=== PATIENT | female | born 1975 | race Caucasian/White ===

== ENCOUNTER 2022-04-23 13:45 | Outpatient (RCR) | payer OTHER, SELFPAY ==
--- NOTE | 2022-04-09 19:15 | PT.OIE ---
Current Diagnoses Other chronic pain (04/09/22) Low back pain, unspecified (04/09/22) Stress incontinence (female) (male) (04/09/22) Visit Care Team Role Provider Type Lindsey Key DO Attending Provider Non-Staff Family Provider Primary Care Provider Referring Provider Specialty: Internal Medicine Address: [address] [place] [address], [id number] Email: Physical Therapy Initial Evaluation PT-OP-A Visit Information Start: 04/06/22 16:48 Freq: Status: Active Protocol: Document 04/09/22 09:49 LRN (Rec: 04/09/22 12:39 LRN [id number]) Out-Patient Physical Therapy Visit Information Visit Information Visit Type Initial Evaluation Visit Start Time 09:49 Visit Stop Time 10:29 Total Visit Minutes 40 Visit Number 1 Evaluation Information Evaluation Date 04/09/22 Precautions Precautions PMH: Jaw surgery 1999. Currently taking Alleve every other day since onset (2 months ago). PT-OP-B Current Condition Start: 04/06/22 16:48 Freq: Status: Active Protocol: Document 04/09/22 09:49 LRN (Rec: 04/09/22 12:39 LRN [id number]) Current Condition History of Current Condition Onset Date LBP-2 months ago, Stress urinary leak - 3 yrs ago Current Complaints Pain at sacral level intermittently daily, Urine leakage History of Current Condition Pt states her back is the primary problem and her primary area of interest for therapy. Her pain began for the first time 2 months ago after leaning forward to cough , causing her back to freeze up. Her pain lasted 3 days followed by self treatment of Mega's patches and Alleve, that she has contined taking every other day. Currently her low back intermittently freezes up. Her Urinary leakage onset was noted as staining in her underpants, but she reports not feeling urinary leakage. She is able to delay urination 31-60 minutes and she notes pelvic heaviness/pressure all day. Pt has not had children. She leaks with coughting, sneezing, or laughing. Leakage with a stong urge. 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 She has exercised in a gym but has now stopped due to no longer using a mask at the gym . States she primarily did cardio exercise. 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 X-ray report unavailable to verify. Future Testing and Treatments Planned None Treatment Goals Patient/Caregiver Goals Pt goal is to improve control of her lower core because she feels she has lost control of her lower abs due to unable to ex during COVID lockdown. Wants to do home ex's and do them the right way to improve core strength/stability. 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 Did active tours when on campus before [facility]. Baseline Function- Recreation/Hobbies Carried backpack for overnight camping/hiking with girlfriends (30# or less). 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 Functional Limitations- Recreation/ Not able to backpack for Hobbies overnight camping/hiking with girlfriends (30# or less). Personal Factors Other Personal Factors That May Effect Endometriosis surgery 2006. Therapy/Recovery Recent moved to local [facility] in July [place] from [place], [place] , requiring her to 1x/month to drive to [place] for work. PT-OP-C Subjective Start: 04/06/22 16:48 Freq: Status: Active Protocol: Document 04/09/22 09:49 LRN (Rec: 04/09/22 12:39 LRN [id number]) Patient Questionnaires Oswestry Low Back Index Oswestry Score 14 Oswestry Impairment 1 to 19% Impaired (Score 1-19) Pelvic Pain and Urgency/Frequency Patient Symptom Scale Pelvic Pain Score 4 OP-PT Pain Assessment Pain Assessment Grid Paper Pain Assessment Grid Completed Yes Location Low Back Pain Location Details Sacral region of low back Intensity 4 Scale Used Numeric (0 - 10) Description Aching,Dull Description- Other Sometimes a surprise punch and sometimes down post thigh either sie. Frequency Intermittent Pain Duration Pain down thighs is quick, Long duration dull ache. PT-OP-H Neuro Start: 04/06/22 16:48 Freq: Status: Active Protocol: Document 04/09/22 09:49 LRN (Rec: 04/09/22 19:12 LRN [id number]) Sensation Evaluation Gross Sensation Gross Sensation WNL PT-OP-J Posture/Palpation/Skin Start: 04/06/22 16:48 Freq: Status: Active Protocol: Document 04/09/22 09:49 LRN (Rec: 04/09/22 12:39 LRN [id number]) Posture Evaluation Position Standing Head/C-Spine Posture Forward Head L-Spine Posture Shifted Left Shoulder Posture (L) Elevated Scapula Posture (L) Elevated,(R) Depressed Pelvis Posture Anteriorly Tilted,(R) Iliac Crest Superior Knee Posture (L) Genu Valgus,(R) Genu Valgus Foot Arch (L) No Arch,(R) No Arch Comments Posture Comments Anterior tillt of sacrum. Pt wears superfeet. R PSIS is high and deep. Palpation Assessment Location T12 Palpation Location Spinous process T12 Palpation Findings Tenderness Palpation Details Posterior and tender with PA glide causing radiating pain along L rib12 to front Lumbar Palpation Location L5-S1, Palpation Details L rotated. Sacrum Palpation Location Sacrum Palpation Details R side deep; sacrum L rotated PT-OP-K Range of Motion Start: 04/06/22 16:48 Freq: Status: Active Protocol: Document 04/09/22 09:49 LRN (Rec: 04/09/22 12:39 LRN [id number]) Lumbar Spine Range of Motion Lumbar Spine Active Degrees Testing Position Standing Flexion 80 Extension 12 Rotation Left 45 Rotation Right 40 Lateral Flexion Left 9 Lateral Flexion Right 12 Comments Flex 80 deg's with 42 deg's hip flexion Ext 12 deg's wtih 5 deg's of hip extension. Hip Goniometric Range of Motion Hip Right Passive Hip ROM WFL Yes Straight Leg Raise 77 Internal Rotation 65 External Rotation 50 Comments Tight HS w/SLR Left Passive Hip ROM WFL Yes Straight Leg Raise 83 Internal Rotation 55 External Rotation 50 Comments Tight HS w/SLR PT-OP-M Strength Start: 04/06/22 16:48 Freq: Status: Active Protocol: Document 04/09/22 09:49 LRN (Rec: 04/09/22 12:39 LRN [id number]) Trunk Strength Trunk Manual Muscle Testing Flexion 5 Normal Rotation Left 5 Normal Rotation Right 5 Normal Lateral Flexion Left 2+ Poor+ Lateral Flexion Right 2+ Poor+ Core Stabilization Good core stab except lateral trunk SB Comments Mildly lacks core stab with MMT of hip flexin Hip Strength Hip Manual Muscle Testing Right Flexion (L2) 5 Normal Abduction 3 Fair Adduction 5 Normal External Rotation 4 Good Internal Rotation 3 Fair Left Flexion (L2) 5 Normal Abduction 5 Normal Adduction 3 Fair External Rotation 3 Fair Internal Rotation 3 Fair Knee Strength Knee Manual Muscle Testing Right Flexion (S2) 5 Normal Extension (L3) 5 Normal Left Flexion (S2) 3+ Fair+ Extension (L3) 5 Normal Ankle/Foot Strength Ankle and Foot Manual Muscle Testing Right Comments Generally 5/5 Left Comments Generally 5/5 PT-OP-Q Treatments Start: 04/06/22 16:48 Freq: Status: Active Protocol: Document 04/09/22 09:49 LRN (Rec: 04/09/22 12:39 LRN [id number]) Self-Care/Home Management Treatment Education Other Education Pt educated in use of Bladder Diary and I/S in tracking for 1 week. Discussed use of 2 different diaries for tracking of bladder. Discussed results of evaluation, specifics of plan of care (POC), and goals, pt agreeable to POC and goals. PT-OP-T Assessment and Plan Start: 04/06/22 16:48 Freq: Status: Active Protocol: Document 04/09/22 09:49 LRN (Rec: 04/09/22 12:39 LRN [id number]) Physical Therapy Assessment Rehab Potential Rehabilitation Potential Good Evaluation Complexity Number of Personal Factors/Comorbidities 1-2 Number of Body Systems Impaired 4 or More Clinical Presentation at Evaluation Evolving Impairments Impairments Activity Tolerance,Pain, Posture,ROM,Strength,Transfers Other Impairments Urinary leakage. Goals Three Impairment LBP rated 0-4/10 Impairment LUCY is 7/50 (1-19% impaired, score 1-19) Short Term Goal (STG) Education in proper body mechanics and sitting posture (car rides) STG Duration 04/17/22 Shredding Machine Operator Goal (LTG) Improve control/strength of her lower core & decrease stiffness in low back after long car rides (to [place] 1- 2x/week). Two Impairment Urinary Incontinence with poor awareness Short Term Goal (STG) Pt will be educated in vulvar/ perineal care. STG Duration 04/17/22 Shredding Machine Operator Goal (LTG) Pt will be educated in home ex 's to improve PF muscle tone to decrease onset of urinary staining on her underpants. LTG Duration 07/08/22 One Impairment Lacks appropriate self care HEP Fpc Goal (LTG) Pt will be independent in a self care HEP to manage her LBP and improve PF strength. LTG Duration 07/08/22 Assessment Summary Assessment Pt is a 46 year old female who presents with complaints of LBP that resulted from forced cough in a forward bent position. Asymmetry of hip mobility: PSLR is 77 deg's R, 83 deg's left due to hamstring tightness, decreased hip ER and IR is greater on the R. She has tenderness and decreased PA mobility of T12 and referred pain along the L lower rib with PA mobilization . Her spinous process appears more posteriorly oriented. The pts sacrum is in R rotation and appear forward flexed in standing. The pt will benefit from skilled physical therapy to improve lumbar/sacral mobility to minimize freezing up of her low back and placing the pt on a self care HEP to manage onset of LBP. The pt will also benefit from skilled physical therapy to normalized tone of her PF to improve her ability to maintain urinary continence on a daily basis. She will also benefit from pt education in proper vulvar and perineal care. The pt would benefit from therapy 2x/week, but she is choosing to continue 1x/week, but may decide later to increase to 2x /week; therefore POC at this time will be for 2x/week. Physical Therapy Plan Frequency and Duration Frequency of Treatment 1x/Week Plan of Care Start Date 04/09/22 Plan of Care End Date 07/08/22 Therapeutic Interventions Therapeutic Interventions Aquatic Therapy,Gait Training, Home Exercise Program,Joint Mobilizations,Manual Therapy, Neuromuscular Re-education, Patient/Caregiver Education, Self-Care/Home Management,Soft Tissue Mobilization,Taping, Therapeutic Activities, Therapeutic Exercises Modalities Biofeedback,Cold Pack/Ice Massage,Electric Stimulation, Hot Packs,Traction- Mechanical ,Ultrasound Next Visit Focus/Plan Next Note Type Treatment Note Next Visit Plan Assess PF ms tone and if needed issue bladder diary. Review Kegel if needed after PF assessment and normalize PF contraction without use of substitute muscles. Pt education in appropriate PF ex with deep breathing and transfers, PF/core/hip strengthening, discuss fluid intake if needed, normalize hip/trunk mobility to normalize lumbar spine positioning (eliminate L lumbar tilt), correct sacral L rot and flexion. Check for X-ray report.
--- NOTE | 2022-04-16 12:57 | PT.OTN ---
Current Diagnoses Other chronic pain (04/16/22) Low back pain, unspecified (04/16/22) Stress incontinence (female) (male) (04/16/22) Physical Therapy Treatment Note PT-OP-A Visit Information Start: 04/06/22 16:48 Freq: Status: Active Protocol: Document 04/16/22 10:41 LRN (Rec: 04/16/22 12:57 LRN [id number]) Out-Patient Physical Therapy Visit Information Visit Information Visit Type Treatment Note Visit Start Time 10:41 Visit Stop Time 11:22 Total Visit Minutes 41 Visit Number 2 Evaluation Information Evaluation Date 04/09/22 Precautions Precautions PMH: Jaw surgery 1999. Currently taking Alleve every other day since onset (2 months ago). PT-OP-B Current Condition Start: 04/06/22 16:48 Freq: Status: Active Protocol: Document 04/09/22 09:49 LRN (Rec: 04/09/22 12:39 LRN [id number]) Current Condition History of Current Condition Onset Date LBP-2 months ago, Stress urinary leak - 3 yrs ago Current Complaints Pain at sacral level intermittently daily, Urine leakage History of Current Condition Pt states her back is the primary problem and her primary area of interest for therapy. Her pain began for the first time 2 months ago after leaning forward to cough , causing her back to freeze up. Her pain lasted 3 days followed by self treatment of Mega's patches and Alleve, that she has contined taking every other day. Currently her low back intermittently freezes up. Her Urinary leakage onset was noted as staining in her underpants, but she reports not feeling urinary leakage. She is able to delay urination 31-60 minutes and she notes pelvic heaviness/pressure all day. Pt has not had children. She leaks with coughting, sneezing, or laughing. Leakage with a stong urge. 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 She has exercised in a gym but has now stopped due to no longer using a mask at the gym . States she primarily did cardio exercise. 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 X-ray report unavailable to verify. Future Testing and Treatments Planned None Treatment Goals Patient/Caregiver Goals Pt goal is to improve control of her lower core because she feels she has lost control of her lower abs due to unable to ex during COVID lockdown. Wants to do home ex's and do them the right way to improve core strength/stability. 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 Did active tours when on campus before COVID. Baseline Function- Recreation/Hobbies Carried backpack for overnight camping/hiking with girlfriends (30# or less). 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 Functional Limitations- Recreation/ Not able to backpack for Hobbies overnight camping/hiking with girlfriends (30# or less). Personal Factors Other Personal Factors That May Effect Endometriosis surgery 2006. Therapy/Recovery Recent moved to local [facility] in July 2022 from [place], [place] , requiring her to 1x/month to drive to [place] for work. PT-OP-C Subjective Start: 04/06/22 16:48 Freq: Status: Active Protocol: Document 04/16/22 10:41 LRN (Rec: 04/16/22 12:57 LRN [id number]) OP-PT Subjective Patient Comments Patient Comments LB is feeling good. Trying to sit straight but it is hard. Incontinence no change, but not the primary problem. Wants to strengthen core and decrease LBP. PT-OP-H Neuro Start: 04/06/22 16:48 Freq: Status: Active Protocol: Document 04/09/22 09:49 LRN (Rec: 04/09/22 19:12 LRN [id number]) Sensation Evaluation Gross Sensation Gross Sensation WNL PT-OP-J Posture/Palpation/Skin Start: 04/06/22 16:48 Freq: Status: Active Protocol: Document 04/09/22 09:49 LRN (Rec: 04/09/22 12:39 LRN [id number]) Posture Evaluation Position Standing Head/C-Spine Posture Forward Head L-Spine Posture Shifted Left Shoulder Posture (L) Elevated Scapula Posture (L) Elevated,(R) Depressed Pelvis Posture Anteriorly Tilted,(R) Iliac Crest Superior Knee Posture (L) Genu Valgus,(R) Genu Valgus Foot Arch (L) No Arch,(R) No Arch Comments Posture Comments Anterior tillt of sacrum. Pt wears superfeet. R PSIS is high and deep. Palpation Assessment Location T12 Palpation Location Spinous process T12 Palpation Findings Tenderness Palpation Details Posterior and tender with PA glide causing radiating pain along L rib12 to front Lumbar Palpation Location L5-S1, Palpation Details L rotated. Sacrum Palpation Location Sacrum Palpation Details R side deep; sacrum L rotated PT-OP-K Range of Motion Start: 04/06/22 16:48 Freq: Status: Active Protocol: Document 04/09/22 09:49 LRN (Rec: 04/09/22 12:39 LRN [id number]) Lumbar Spine Range of Motion Lumbar Spine Active Degrees Testing Position Standing Flexion 80 Extension 12 Rotation Left 45 Rotation Right 40 Lateral Flexion Left 9 Lateral Flexion Right 12 Comments Flex 80 deg's with 42 deg's hip flexion Ext 12 deg's wtih 5 deg's of hip extension. Hip Goniometric Range of Motion Hip Right Passive Hip ROM WFL Yes Straight Leg Raise 77 Internal Rotation 65 External Rotation 50 Comments Tight HS w/SLR Left Passive Hip ROM WFL Yes Straight Leg Raise 83 Internal Rotation 55 External Rotation 50 Comments Tight HS w/SLR PT-OP-M Strength Start: 04/06/22 16:48 Freq: Status: Active Protocol: Document 04/09/22 09:49 LRN (Rec: 04/09/22 12:39 LRN [id number]) Trunk Strength Trunk Manual Muscle Testing Flexion 5 Normal Rotation Left 5 Normal Rotation Right 5 Normal Lateral Flexion Left 2+ Poor+ Lateral Flexion Right 2+ Poor+ Core Stabilization Good core stab except lateral trunk SB Comments Mildly lacks core stab with MMT of hip flexin Hip Strength Hip Manual Muscle Testing Right Flexion (L2) 5 Normal Abduction 3 Fair Adduction 5 Normal External Rotation 4 Good Internal Rotation 3 Fair Left Flexion (L2) 5 Normal Abduction 5 Normal Adduction 3 Fair External Rotation 3 Fair Internal Rotation 3 Fair Knee Strength Knee Manual Muscle Testing Right Flexion (S2) 5 Normal Extension (L3) 5 Normal Left Flexion (S2) 3+ Fair+ Extension (L3) 5 Normal Ankle/Foot Strength Ankle and Foot Manual Muscle Testing Right Comments Generally 5/5 Left Comments Generally 5/5 PT-OP-Q Treatments Start: 04/06/22 16:48 Freq: Status: Active Protocol: Document 04/16/22 10:41 LRN (Rec: 04/16/22 12:57 LRN [id number]) Therapeutic Exercises Supine Exercises Fig 4 stretch Supine Exercise Name Fig 4 stretch Side bilateral Reps/Minutes 6' Comments Extra time to determine max stretch position tolerated Lateral Hip stretch Supine Exercise Name Lateral Hip stretch Side right Reps/Minutes 5' Comments Extra time to determine max stretch position tolerated Pirirformis stretch Supine Exercise Name R ankle over L knee > L KTC ( stretching R piriformis) Side right Reps/Minutes 5' Comments Extra time to determine max stretch position tolerated Hamstring/LE neural stretch Supine Exercise Name Hamstring/LE neural stretch Side right Reps/Minutes 5' Comments Extra time to determine max stretch position tolerated & cuing for holding DKTC Supine Exercise Name DKTC Side bilateral Reps/Minutes 10SH x 10 Comments Extra time to determine max stretch position tolerated SKTC Supine Exercise Name SKTC Side left Reps/Minutes 10SH x 5 Comments Extra time to determine max stretch position tolerated Manual Therapy Treatment Soft Tissue Mobilization Coccyx Body Location R side of coccyx Mobilization Type Manual Lymphatic Drainage, Sustained Pressure Intensity/Depth Moderate Body Position Prone Joint Mobilizations L TITO Joint L TITO Direction PA Grade II Body Position Prone Comments MFR to mob R Sacral border Joint R upper and mid dstal border Direction PA Grade II Body Position Prone Comments MFR to mob Self-Care/Home Management Treatment Education Patient Education Home Exercise Program Other Education Pt educated in use of Bladder Diary and I/S in tracking for 1 week. Discussed use of 2 different diaries for tracking of bladder. Activities Self-Care/Home Management Activities I/S and issued & reviewed HEP: L SKTC, DKTC stretch, R hamstring/LE neural stretch, R Piriformis; L Fig 4 stretch. PT-OP-T Assessment and Plan Start: 04/06/22 16:48 Freq: Status: Active Protocol: Document 04/16/22 10:41 LRN (Rec: 04/16/22 12:57 LRN [id number]) Physical Therapy Assessment Goals Three Impairment LBP rated 0-4/10 Impairment LUCY is 7/50 (1-19% impaired, score 1-19) Short Term Goal (STG) Education in proper body mechanics and sitting posture (car rides) STG Duration 04/17/22 Fashion Designer Goal (LTG) Improve control/strength of her lower core & decrease stiffness in low back after long car rides (to [employer] 1- 2x/week). Two Impairment Urinary Incontinence with poor awareness Short Term Goal (STG) Pt will be educated in vulvar/ perineal care. STG Duration 04/17/22 Fashion Designer Goal (LTG) Pt will be educated in home ex 's to improve PF muscle tone to decrease onset of urinary staining on her underpants. LTG Duration 07/08/22 One Impairment Lacks appropriate self care HEP Fashion Designer Goal (LTG) Pt will be independent in a self care HEP to manage her LBP and improve PF strength. LTG Duration 07/08/22 Assessment Summary Assessment Pt primarily wanting treatment jose care of LBP. Not interested in manual assessment of PF. Pt interested in appropriates strengthening ex's for Core ( abdomen). Physical Therapy Plan Frequency and Duration Frequency of Treatment 1x/Week Plan of Care Start Date 04/09/22 Plan of Care End Date 07/08/22 Next Visit Focus/Plan Next Note Type Treatment Note Next Visit Plan Discuss core strengthening alternatives other than sit ups to protect bladder. No PF assessment per pt preferring no manual PF assessment. Suggest PF electrode for assessment of PF tone. Review bladder diary. Make recommendations for ex and self care per bladder diary. Normalize PF contraction without use of substitute muscles. Pt education in appropriate PF ex with deep breathing and transfers, PF/core/hip strengthening, discuss fluid intake if needed, normalize hip/trunk mobility to normalize lumbar spine positioning (eliminate L lumbar tilt), correct sacral L rot and flexion. Check for X-ray report.
--- NOTE | 2022-04-23 17:31 | PT.OTN ---
Current Diagnoses Other chronic pain (04/23/22) Low back pain, unspecified (04/23/22) Stress incontinence (female) (male) (04/23/22) Physical Therapy Treatment Note PT-OP-A Visit Information Start: 04/06/22 16:48 Freq: Status: Active Protocol: Document 04/23/22 13:50 LRN (Rec: 04/23/22 14:32 LRN [id number]) Out-Patient Physical Therapy Visit Information Visit Information Visit Type Treatment Note Visit Start Time 13:50 Visit Stop Time 14:28 Total Visit Minutes 38 Visit Number 3 Evaluation Information Evaluation Date 04/09/22 Precautions Precautions PMH: Jaw surgery 1999. Currently taking Alleve every other day since onset (2 months ago). PT-OP-B Current Condition Start: 04/06/22 16:48 Freq: Status: Active Protocol: Document 04/09/22 09:49 LRN (Rec: 04/09/22 12:39 LRN [id number]) Current Condition History of Current Condition Onset Date LBP-2 months ago, Stress urinary leak - 3 yrs ago Current Complaints Pain at sacral level intermittently daily, Urine leakage History of Current Condition Pt states her back is the primary problem and her primary area of interest for therapy. Her pain began for the first time 2 months ago after leaning forward to cough , causing her back to freeze up. Her pain lasted 3 days followed by self treatment of Mega's patches and Alleve, that she has contined taking every other day. Currently her low back intermittently freezes up. Her Urinary leakage onset was noted as staining in her underpants, but she reports not feeling urinary leakage. She is able to delay urination 31-60 minutes and she notes pelvic heaviness/pressure all day. Pt has not had children. She leaks with coughting, sneezing, or laughing. Leakage with a stong urge. 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 She has exercised in a gym but has now stopped due to no longer using a mask at the gym . States she primarily did cardio exercise. 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 X-ray report unavailable to verify. Future Testing and Treatments Planned None Treatment Goals Patient/Caregiver Goals Pt goal is to improve control of her lower core because she feels she has lost control of her lower abs due to unable to ex during COVID lockdown. Wants to do home ex's and do them the right way to improve core strength/stability. 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 Did active tours when on campus before COVID. Baseline Function- Recreation/Hobbies Carried backpack for overnight camping/hiking with girlfriends (30# or less). 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 Functional Limitations- Recreation/ Not able to backpack for Hobbies overnight camping/hiking with girlfriends (30# or less). Personal Factors Other Personal Factors That May Effect Endometriosis surgery 2006. Therapy/Recovery Recent moved to local [facility] in July 2022 from [place], [place] , requiring her to 1x/month to drive to [place] for work. PT-OP-C Subjective Start: 04/06/22 16:48 Freq: Status: Active Protocol: Document 04/23/22 13:50 LRN (Rec: 04/23/22 14:32 LRN [id number]) OP-PT Subjective Patient Comments Patient Comments Back is feeling really good. Not feeling the pushing and waking pain. Not waking sefl up at night. Not really feeling any pain in the back. PT-OP-H Neuro Start: 04/06/22 16:48 Freq: Status: Active Protocol: Document 04/09/22 09:49 LRN (Rec: 04/09/22 19:12 LRN [id number]) Sensation Evaluation Gross Sensation Gross Sensation WNL PT-OP-J Posture/Palpation/Skin Start: 04/06/22 16:48 Freq: Status: Active Protocol: Document 04/09/22 09:49 LRN (Rec: 04/09/22 12:39 LRN [id number]) Posture Evaluation Position Standing Head/C-Spine Posture Forward Head L-Spine Posture Shifted Left Shoulder Posture (L) Elevated Scapula Posture (L) Elevated,(R) Depressed Pelvis Posture Anteriorly Tilted,(R) Iliac Crest Superior Knee Posture (L) Genu Valgus,(R) Genu Valgus Foot Arch (L) No Arch,(R) No Arch Comments Posture Comments Anterior tillt of sacrum. Pt wears superfeet. R PSIS is high and deep. Palpation Assessment Location T12 Palpation Location Spinous process T12 Palpation Findings Tenderness Palpation Details Posterior and tender with PA glide causing radiating pain along L rib12 to front Lumbar Palpation Location L5-S1, Palpation Details L rotated. Sacrum Palpation Location Sacrum Palpation Details R side deep; sacrum L rotated PT-OP-K Range of Motion Start: 04/06/22 16:48 Freq: Status: Active Protocol: Document 04/09/22 09:49 LRN (Rec: 04/09/22 12:39 LRN [id number]) Lumbar Spine Range of Motion Lumbar Spine Active Degrees Testing Position Standing Flexion 80 Extension 12 Rotation Left 45 Rotation Right 40 Lateral Flexion Left 9 Lateral Flexion Right 12 Comments Flex 80 deg's with 42 deg's hip flexion Ext 12 deg's wtih 5 deg's of hip extension. Hip Goniometric Range of Motion Hip Right Passive Hip ROM WFL Yes Straight Leg Raise 77 Internal Rotation 65 External Rotation 50 Comments Tight HS w/SLR Left Passive Hip ROM WFL Yes Straight Leg Raise 83 Internal Rotation 55 External Rotation 50 Comments Tight HS w/SLR PT-OP-M Strength Start: 04/06/22 16:48 Freq: Status: Active Protocol: Document 04/09/22 09:49 LRN (Rec: 04/09/22 12:39 LRN [id number]) Trunk Strength Trunk Manual Muscle Testing Flexion 5 Normal Rotation Left 5 Normal Rotation Right 5 Normal Lateral Flexion Left 2+ Poor+ Lateral Flexion Right 2+ Poor+ Core Stabilization Good core stab except lateral trunk SB Comments Mildly lacks core stab with MMT of hip flexin Hip Strength Hip Manual Muscle Testing Right Flexion (L2) 5 Normal Abduction 3 Fair Adduction 5 Normal External Rotation 4 Good Internal Rotation 3 Fair Left Flexion (L2) 5 Normal Abduction 5 Normal Adduction 3 Fair External Rotation 3 Fair Internal Rotation 3 Fair Knee Strength Knee Manual Muscle Testing Right Flexion (S2) 5 Normal Extension (L3) 5 Normal Left Flexion (S2) 3+ Fair+ Extension (L3) 5 Normal Ankle/Foot Strength Ankle and Foot Manual Muscle Testing Right Comments Generally 5/5 Left Comments Generally 5/5 PT-OP-Q Treatments Start: 04/06/22 16:48 Freq: Status: Active Protocol: Document 04/23/22 13:50 LRN (Rec: 04/23/22 14:32 LRN [id number]) Therapeutic Exercises Supine Exercises Rot hands/knee push Supine Exercise Name Rot Hands/Knees push Side right Equipment Used Ball Comments Cuing and training to keep lower abs from bulging. Hands/knees push Supine Exercise Name Hands/knees push Side bilateral Equipment Used self and PT hand cuing Comments Much cuing to for bulging of TA TA/Breathing Supine Exercise Name TA/Breathing/PF coodinating with exercises Reps/Minutes 8' Comments Pt was not able to maintain TA tight with breathing for ex. Neutral spine awareness Supine Exercise Name Neutral Spine awareness training Reps/Minutes 5' Comments Much phys cuing needed with pt and PT's hands on LB & abdomen TA Supine Exercise Name TA in neutral spine with keeping upper body in neutral Equipment Used Hand behind back Comments Much cuing for awareness of neutral spine to prevent L upper T/S ms spasms Other Exercises Coordination breathing w/transfers Other Exercise Name Coordination of breathing with transfer Reps/Minutes 5' PT-OP-T Assessment and Plan Start: 04/06/22 16:48 Freq: Status: Active Protocol: Document 04/23/22 13:50 LRN (Rec: 04/23/22 14:32 LRN [id number]) Physical Therapy Assessment Goals Three Impairment LBP rated 0-4/10 Impairment LUCY is 7/50 (1-19% impaired, score 1-19) Short Term Goal (STG) Education in proper body mechanics and sitting posture (car rides) STG Duration 04/17/22 [employer] [place] Goal (LTG) Improve control/strength of her lower core & decrease stiffness in low back after long car rides (to [place] 1- 2x/week). (04/23/22: Started TA ex for lower core strengthening) LTG Duration (04/23/22: Progressing) Two Impairment Urinary Incontinence with poor awareness Short Term Goal (STG) Pt will be educated in vulvar/ perineal care. STG Duration 04/17/22 Snf Goal (LTG) Pt will be educated in home ex 's to improve PF muscle tone to decrease onset of urinary staining on her underpants. LTG Duration 07/08/22 One Impairment Lacks appropriate self care HEP [employer] [place] Goal (LTG) Pt will be independent in a self care HEP to manage her LBP and improve PF strength. LTG Duration 07/08/22 Assessment Summary Assessment Pt had extremely difficult time maintaining TA tight with breathing; therefore poor stab during exercise. She was not able to maintain TA tight with isometric abdominal ex's . She is able to tighten TA, but with any resistance bulges in abdomen. Pt is probably strong in upper abs from sit up type ex's, but very weak in lower abs and with rotation. Pt receptive to core strengthening alternatives other than sit ups (lower ab ex) and protection of bladder from dropping. Physical Therapy Plan Frequency and Duration Frequency of Treatment 1x/Week Plan of Care Start Date 04/09/22 Plan of Care End Date 07/08/22 Next Visit Focus/Plan Next Note Type Treatment Note Next Visit Plan No PF assessment per pt preferring no manual PF assessment. Suggest PF electrode for assessment of PF tone. Ask if pt receptive to education in vulvar/perineal care, and PF ex's, ?Review of bladder diary. Make recommendations for ex and self care per bladder diary. If pt agreeable, pt education in appropriate PF ex with deep breathing and transfers, PF/ core/hip strengthening, discuss fluid intake if needed , Normalize hip/trunk mobility to normalize lumbar spine positioning (eliminate L lumbar tilt), correct sacral L rot and flexion. Check for X-ray report.
--- NOTE | 2022-06-08 08:58 | PT.OPDS ---
Current Diagnoses Other chronic pain (04/23/22) Low back pain, unspecified (04/23/22) Stress incontinence (female) (male) (04/23/22) Visit Care Team Role Provider Type Lindsey Key DO Attending Provider Non-Staff Family Provider Primary Care Provider Referring Provider Specialty: Internal Medicine Address: [address] [place] [address], [id number] Email: Visit Number Visit Number 3 Discharge Summary PT-OP-B Current Condition Start: 04/06/22 16:48 Freq: Status: Active Protocol: Document 04/09/22 09:49 LRN (Rec: 04/09/22 12:39 LRN [id number]) Current Condition History of Current Condition Onset Date LBP-2 months ago, Stress urinary leak - 3 yrs ago Current Complaints Pain at sacral level intermittently daily, Urine leakage History of Current Condition Pt states her back is the primary problem and her primary area of interest for therapy. Her pain began for the first time 2 months ago after leaning forward to cough , causing her back to freeze up. Her pain lasted 3 days followed by self treatment of Mega's patches and Alleve, that she has contined taking every other day. Currently her low back intermittently freezes up. Her Urinary leakage onset was noted as staining in her underpants, but she reports not feeling urinary leakage. She is able to delay urination 31-60 minutes and she notes pelvic heaviness/pressure all day. Pt has not had children. She leaks with coughting, sneezing, or laughing. Leakage with a stong urge. 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 She has exercised in a gym but has now stopped due to no longer using a mask at the gym . States she primarily did cardio exercise. 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 X-ray report unavailable to verify. Future Testing and Treatments Planned None Treatment Goals Patient/Caregiver Goals Pt goal is to improve control of her lower core because she feels she has lost control of her lower abs due to unable to ex during COVID lockdown. Wants to do home ex's and do them the right way to improve core strength/stability. 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 Did active tours when on campus before [facility]. Baseline Function- Recreation/Hobbies Carried backpack for overnight camping/hiking with girlfriends (30# or less). 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 Functional Limitations- Recreation/ Not able to backpack for Hobbies overnight camping/hiking with girlfriends (30# or less). Personal Factors Other Personal Factors That May Effect Endometriosis surgery 2006. Therapy/Recovery Recent moved to local [facility] in July 2022 from [place], [place] , requiring her to 1x/month to drive to [place] for work. PT-OP-C Subjective Start: 04/06/22 16:48 Freq: Status: Active Protocol: Document 04/23/22 13:50 LRN (Rec: 04/23/22 14:32 LRN [id number]) OP-PT Subjective Patient Comments Patient Comments Back is feeling really good. Not feeling the pushing and waking pain. Not waking sefl up at night. Not really feeling any pain in the back. PT-OP-H Neuro Start: 04/06/22 16:48 Freq: Status: Active Protocol: Document 04/09/22 09:49 LRN (Rec: 04/09/22 19:12 LRN [id number]) Sensation Evaluation Gross Sensation Gross Sensation WNL PT-OP-J Posture/Palpation/Skin Start: 04/06/22 16:48 Freq: Status: Active Protocol: Document 04/09/22 09:49 LRN (Rec: 04/09/22 12:39 LRN [id number]) Posture Evaluation Position Standing Head/C-Spine Posture Forward Head L-Spine Posture Shifted Left Shoulder Posture (L) Elevated Scapula Posture (L) Elevated,(R) Depressed Pelvis Posture Anteriorly Tilted,(R) Iliac Crest Superior Knee Posture (L) Genu Valgus,(R) Genu Valgus Foot Arch (L) No Arch,(R) No Arch Comments Posture Comments Anterior tillt of sacrum. Pt wears superfeet. R PSIS is high and deep. Palpation Assessment Location T12 Palpation Location Spinous process T12 Palpation Findings Tenderness Palpation Details Posterior and tender with PA glide causing radiating pain along L rib12 to front Lumbar Palpation Location L5-S1, Palpation Details L rotated. Sacrum Palpation Location Sacrum Palpation Details R side deep; sacrum L rotated PT-OP-K Range of Motion Start: 04/06/22 16:48 Freq: Status: Active Protocol: Document 04/09/22 09:49 LRN (Rec: 04/09/22 12:39 LRN [id number]) Lumbar Spine Range of Motion Lumbar Spine Active Degrees Testing Position Standing Flexion 80 Extension 12 Rotation Left 45 Rotation Right 40 Lateral Flexion Left 9 Lateral Flexion Right 12 Comments Flex 80 deg's with 42 deg's hip flexion Ext 12 deg's wtih 5 deg's of hip extension. Hip Goniometric Range of Motion Hip Right Passive Hip ROM WFL Yes Straight Leg Raise 77 Internal Rotation 65 External Rotation 50 Comments Tight HS w/SLR Left Passive Hip ROM WFL Yes Straight Leg Raise 83 Internal Rotation 55 External Rotation 50 Comments Tight HS w/SLR PT-OP-M Strength Start: 04/06/22 16:48 Freq: Status: Active Protocol: Document 04/09/22 09:49 LRN (Rec: 04/09/22 12:39 LRN [id number]) Trunk Strength Trunk Manual Muscle Testing Flexion 5 Normal Rotation Left 5 Normal Rotation Right 5 Normal Lateral Flexion Left 2+ Poor+ Lateral Flexion Right 2+ Poor+ Core Stabilization Good core stab except lateral trunk SB Comments Mildly lacks core stab with MMT of hip flexin Hip Strength Hip Manual Muscle Testing Right Flexion (L2) 5 Normal Abduction 3 Fair Adduction 5 Normal External Rotation 4 Good Internal Rotation 3 Fair Left Flexion (L2) 5 Normal Abduction 5 Normal Adduction 3 Fair External Rotation 3 Fair Internal Rotation 3 Fair Knee Strength Knee Manual Muscle Testing Right Flexion (S2) 5 Normal Extension (L3) 5 Normal Left Flexion (S2) 3+ Fair+ Extension (L3) 5 Normal Ankle/Foot Strength Ankle and Foot Manual Muscle Testing Right Comments Generally 5/5 Left Comments Generally 5/5 PT-OP-T Assessment and Plan Start: 04/06/22 16:48 Freq: Status: Active Protocol: Document 06/08/22 08:56 LRN (Rec: 06/08/22 08:58 LRN [id number]) Physical Therapy Assessment Goals Three Impairment LBP rated 0-4/10 Impairment LUCY is 7/50 (1-19% impaired, score 1-19) Short Term Goal (STG) Education in proper body mechanics and sitting posture (car rides) STG Duration 04/17/22 (05/21/22: Goal not met, early discharge at pt request) 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 (04/23/22: Started TA ex for lower core strengthening) LTG Duration (05/21/22: Goal not met, early discharge at pt request) Two Impairment Urinary Incontinence with poor awareness Short Term Goal (STG) Pt will be educated in vulvar/ perineal care. 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 LTG Duration 07/08/22 (05/21/22: Goal not met, early discharge at pt request) One Impairment Lacks appropriate self care HEP [facility] Goal (LTG) Pt will be independent in a self care HEP to manage her LBP and improve PF strength. (04/16/22: Pt was given a HEP of hip stretches) LTG Duration 07/08/22 (05/21/22: Goal partially met, early discharge at pt request) Assessment Summary Assessment Pt called 05/06/22 to report she is better and PT no longer needed, requested DC; therefore pt is being discharged from PT. Goals not assessed; therefore not met or partially met due to early discharge. Physical Therapy Plan Discharge Physical Therapy Discharge Reasons Patient Request Discharge Comments Thank you for your referral.
== END 2022-06-11 09:10 ==
LOC: PHYS 13:45
PROVIDERS: Family Provider Internal Medicine; PCP Internal Medicine; Referring Provider Internal Medicine; Visit Provider Internal Medicine
DX: M54.50 Low back pain, unspecified (principal); G89.29 Other chronic pain; N39.3 Stress incontinence (female) (male)
CPT/HCPCS: 97110; 97140; 97162; 97535

== ENCOUNTER → 2024-08-29 10:25 | Outpatient (CLI) | payer OTHER, SELFPAY ==
--- NOTE | 2024-08-29 | DI.RAD.S_ITS ---
PROCEDURE: XR LUMBAR SPINE 2-3V INDICATIONS: low back pain TECHNIQUE: 3 views of the lumbar spine were acquired. COMPARISON: [facility], CR, XR LUMBAR SPINE 2 OR 3 VIEWS, 02/27/2022, 9:18. FINDINGS: Bones: 5 [id number] vertebrae are present. Transitional anatomy is noted with lumbarization of the S1 vertebral body. There is normal bony alignment. No vertebral body compression fractures. No suspicious bony lesions. Mild facet arthropathy of the lower lumbar spine. Mild disc height loss at L5-S1. Soft tissues: Overlying bowel gas pattern is normal. No suspicious soft tissue calcifications. IMPRESSION: Mild degenerative changes of the lower lumbar spine. No acute osseous abnormalities. Transitional anatomy is noted with lumbarization of the S1 vertebral body. Dictated by: Barry Salas M.D. on 08/29/2024 at 15:09 Approved by: Barry Salas M.D. on 08/29/2024 at 15:11
== END ==
PROVIDERS: Family Provider Internal Medicine; PCP Physician Assistant; Referring Provider Chiropractor; Visit Provider Chiropractor
DX: M47.816 Spondylosis without myelopathy or radiculopathy, lumbar region (principal); M54.50 Low back pain, unspecified
CPT/HCPCS: 72100